=== PATIENT | male | born 1980 | race Caucasian/White ===

== ENCOUNTER → 2021-05-25 | Outpatient (CLI) | payer BC ==
--- NOTE | 2021-05-25 09:39 | RAD ---
Exam Date: 05/25/2021 8:55 AM US ABDOMEN LIMITED Indication: Reason: ELEVATED LIVER ENZYMES, EPIGASTRIC PAIN / Spl. Instructions: / History: . TECHNIQUE: Multiple longitudinal and transverse sonographic images of the right upper quadrant and g allbladder are submitted for interpretation. FINDINGS: The liver is normal in size and echogenicity. The portal vein is patent, with hepatopetal flow. No focal intrahepatic abnormality is seen. There are multiple gallstones. Gallbladder wall thickness is suboptimally evaluated due to gallbladd er contraction, but may be mildly thickened. No pericholecystic fluid is seen. There is no biliary ductal dilatation, with the common bile duct measuring 4 mm. The visualized abdominal aorta, inferior vena cava and pancreas are within normal limits. There is n o upper abdominal ascites. The right kidney is normal in appearance, measuring 12.3 cm. IMPRESSION: Gallstones. Gallbladder wall thickness is suboptimally evaluated due to gallbladder contraction, but may be mildly thickened. Cholecystitis is not excluded. If there is clinical concern for cholecyst itis, consider further evaluation with nuclear medicine hepatobiliary scan. Electronically signed by: Jesse Salamanca MD (05/25/2021 9:37 AM) [id number]
== END ==
LOC: US 08:49
PROVIDERS: ATTEND Physician Assistant
DX: K80.20 Calculus of gallbladder without cholecystitis without obstruction (principal); R94.5 Abnormal results of liver function studies; R10.13 Epigastric pain
CPT/HCPCS: 76705